=== PATIENT | female | born 1960 | race Caucasian/White ===

== ENCOUNTER → 2018-02-08 | Outpatient (CLI) | payer OTHER ==
[~2018-02-08] MED LIST: AMBIEN 5 MG TABL5 M1 PO; BENTYL 10 MG CA10 M1 PO; FLEXERIL; IBUPROFEN 800800 M1 PO; KEFLEX500 MG PO; LEVOTHYROXIN0.125 M1 PO; LIPITOR 20 MG T20 M1 PO; PRILOSEC 10MG C10 M1 PO; PRILOSEC 20 MG20 MG PO; XANAX 0.25 MG0.25 MG PO; XANAX 0.5 MG0.5 MG PO; ZOFRAN4 MG PO; [UNRECOGNIZED DRUG - REMARK]
== END ==
LOC: M.CT 16:57
DX: R49.9 Unspecified voice and resonance disorder (principal); Z86.39 Personal history of other endocrine, nutritional and metabolic disease; J38.5 Laryngeal spasm

== ENCOUNTER 2021-01-01 12:12 | Emergency (ER) | payer OTHER ==
[~2021-01-01] VITALS: Ht 162.6 cm; Wt 74.5 kg
[2021-01-01 12:40] LABS: ABSOLUTE BASOPHILS 0.1 thou/uL (0.0-0.2); ABSOLUTE EOSINOPHILS 0.1 thou/uL (0.0-0.7); ABSOLUTE LYMPHOCYTES 2.6 thou/uL (0.8-5.3); ABSOLUTE MONOCYTES 0.8 thou/uL (0.0-1.2); ABSOLUTE NEUTROPHILS 6.4 thou/uL (1.6-8.1); BASOPHILS 0.7 %; EOSINOPHILS 1.3 %; HEMATOCRIT 41.4 % (37.0-47.0); HEMOGLOBIN 13.9 gm/dL (12.0-15.0); LYMPHOCYTES 25.7 %; MCH 30.7 pg (26.0-34.0); MCHC 33.5 g/dL (28.0-37.0); MCV 91.7 fL (80.0-100.0); MONOCYTES 7.9 %; MPV 8.7 fl. (7.2-11.1); NUCLEATED RBCS 0 /100WBC; PLATELET COUNT* 282 thou/uL (150-400); POLYS 64.4 %; RBC 4.52 mil/uL (4.20-5.00); RDW-CV 14.4 % (10.5-14.5); WBC 9.9 thou/uL (4.0-11.0)
[2021-01-01 12:47] LABS: CALCIUM 8.8 mg/dL (8.5-10.1); CREATININE 0.8 mg/dL (0.6-1.3); POTASSIUM 3.6 mmol/L (3.5-5.1)
[2021-01-01 12:52] LABS: ALBUMIN 3.9 g/dL (3.4-5.0); TOTAL BILIRUBIN 0.4 mg/dL (<0.1-1.0)
[2021-01-01 13:02] LABS: APTT 26.2 Seconds (25.0-31.3); INR 1.1; PROTIME 11.2 Seconds (9.20-11.50)
[2021-01-01 13:35] VITALS: BP 119/53
--- NOTE | 2021-01-01 15:11 | EKG ---
[place] [address] ELECTROCARDIOGRAM REPORT Name: AMILCAR LAKE Room: [facility]#: [id number] Admission: 01/01/21 Attend Phys: Discharge: Date of : 60 Date of Service: 01/01/21 1247 Report #: [id number] THIS REPORT FOR: //name// [facility] ED Test Date: 2021-01-01 Test Time: 12:47:14 Pat Name: AMILCAR LAKE Department: Room: Gender: F Licensed Home Inspector: [facility] : 1960 Requested By: Cam Wright Order Number: [id number] MD: Chet Patel Measurements Intervals [place] Rate: 58 P: 32 LA: 141 QRS: -8 QRSD: 107 T: 55 QT: 433 QTc: 426 Interpretive Statements Sinus rhythm Baseline wander in lead(s) II,III,aVF Compared to ECG 09/02/2017 19:49:27 No significant changes Electronically Signed On 01-01-2021 15:11:23 CDT by Chet Patel [email or web address] <ELECTRONICALLY SIGNED> By: Chet Patel MD, FAC 01/01/21 1511 1247 1247 Chet Patel MD, [facility] /EPI
== END 2021-01-01 13:39 | disposition home or self-care (01) ==
LOC: M.ERS 12:12
PROVIDERS: Family Medicine
DX: G45.9 Transient cerebral ischemic attack, unspecified (principal); F41.9 Anxiety disorder, unspecified; I10 Essential (primary) hypertension; E78.00 Pure hypercholesterolemia, unspecified; K21.9 Gastro-esophageal reflux disease without esophagitis; Z88.0 Allergy status to penicillin; Z88.2 Allergy status to sulfonamides; Z88.5 Allergy status to narcotic agent; Z90.710 Acquired absence of both cervix and uterus; Z79.899 Other long term (current) drug therapy